=== PATIENT | male | born 1950 | race African-American/Black ===

== ENCOUNTER 2019-05-01 05:44 | Day surgery (SDC) | payer OTHER ==
[~2019-05-01] VITALS: Ht 167.6 cm; Wt 84.4 kg
[~2019-05-01 05:44] MED LIST: AMLO10TA80 PO; ASPI-1393 PO; ATOR10TA69 PO; METF-416 PO
[2019-05-01] MEDS ORDERED: FENTANYL CITRATE/PF 50MCG/ML 2ML VIAL ONE (07:52)
[2019-05-01] MEDS ORDERED: MIDAZOLAM HCL 2 MG/2 ML VIAL ONE (07:53)
[2019-05-01] MEDS ORDERED: PROPOFOL 200MG/20ML VIAL IV ONE (07:53)
[2019-05-01] MEDS ORDERED: ONDANSETRON HCL 4MG/2ML INJ ONE (07:54)
[2019-05-01] MEDS ORDERED: DEXAMETHASONE 4MG/ML 1ML VIAL ONE (07:54)
== END 2019-05-01 10:35 | disposition home or self-care (01) ==
LOC: OR 05:44
PROVIDERS: ATTEND Pathology Anatomic Pathology & Clinical Pathology
DX: C91.10 Chronic lymphocytic leukemia of B-cell type not having achieved remission (principal); I10 Essential (primary) hypertension; E11.9 Type 2 diabetes mellitus without complications; Z98.890 Other specified postprocedural states; Z79.899 Other long term (current) drug therapy; Z79.82 Long term (current) use of aspirin; Z79.84 Long term (current) use of oral hypoglycemic drugs
CPT/HCPCS: 38220; 82962; 85060; 85097; 88313; J1100; J2250; J2405; J2704; J3010